=== PATIENT | male | born 1935 | race Native Hawaiian/Other Pacific Islander ===

== ENCOUNTER 2018-03-07 12:58 | Outpatient (CLI) | payer OTHER, BC | END 2018-03-07 20:15 | disposition home or self-care (01) | LOC: MRI 12:58 | DX: G50.0 Trigeminal neuralgia (principal) ==

== ENCOUNTER 2019-10-07 09:23 | Outpatient (CLI) | payer OTHER, BC | END 2019-10-07 23:52 | disposition home or self-care (01) | LOC: LABW 09:23 | DX: G50.0 Trigeminal neuralgia (principal) | CPT/HCPCS: 36415; 82565; 84520 ==